=== PATIENT | female | born 1990 ===

== ENCOUNTER 2019-06-02 07:15 | Inpatient (IN) | payer SELFPAY ==
[2019-06-02] MEDS ORDERED: Sodium Chloride 0.9% 10 ML SDV IV PRN (07:24)
[2019-06-02] MEDS ORDERED: Sodium Chloride 0.9% 10 ML Syringe FLUSH PRN (07:24)
[2019-06-02] MEDS ORDERED: Carboprost Tromethamine 250 MCG/1 ML Amp IM PRN (07:24)
[2019-06-02] MEDS ORDERED: Sodium Chloride 0.9% 2.5 ML Syringe FLUSH PRN (07:24)
[2019-06-02] MEDS ORDERED: Misoprostol 200 MCG Tab PO PRN (07:24)
[2019-06-02] MEDS ORDERED: Nalbuphine 10 MG/1 ML Vial IVPUSH PRN (07:24)
[2019-06-02] MEDS ORDERED: Tranexamic Acid 1,000 MG in Sodium Chloride 0.9% 100 ML IV PRN (07:24)
[2019-06-02] MEDS ORDERED: Water For Irrigation,Sterile 1,000 ML Container IRR PRN (07:24)
[2019-06-02] MEDS ORDERED: Terbutaline 1 MG/ML SDV SUBCUT PRN (07:24)
[2019-06-02] MEDS ORDERED: Lidocaine 1% 50 ML MDV INJECT PRN (07:24)
[2019-06-02] MEDS ORDERED: Methylergonovine 0.2 MG/1 ML Amp IM PRN (07:24)
[2019-06-02] MEDS ORDERED: Oxytocin/0.9 % Sodium Chloride 30 UNIT/500 ML BAG IV SCH ×2 (07:30)
[2019-06-02] MEDS ORDERED: Misoprostol 25 MCG (1/4 of 100 MCG) Tab VAG PRN (08:00)
[2019-06-02] MEDS: Lactated Ringers 1,000 ML IV SCH ×3 (08:00→15:38)
[2019-06-02] MEDS ORDERED: Misoprostol 25 MCG (1/4 of 100 MCG) Tab PO PRN (08:00)
--- NOTE | 2019-06-02 09:24 | PCM.LDHP ---
L&D History of Present Illness - General Date of Service: 06/02/19 Admit Problem/Dx: Patient Status Order with Admit Dx/Problem 06/02/19 07:24 Patient Status [ADT] Routine Admission Diagnosis/Problem Admission Diagnosis/Problem - planned 06/02/19 09:22 29 yo presenting for IOL at 39 weeks (EDC: 06/09/19), GBS negative, Rubella Immune, O+ Source of Information: Patient History Limitations: Reports: No Limitations - Related Data Allergies/Adverse Reactions: Allergies Allergy/AdvReac Type Severity Reaction Status Date / Time Penicillins Allergy Hives Verified 06/02/19 08:02 Home Medications: Home Meds Pnv No.95/Ferrous Fum/Folic AC [ Vitamin Tablet] 1 tab PO DAILY [History] Past Medical History - Past Health History Medical/Surgical History: Denies 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: Musculoskeletal History: Reports: Muscular Dystrophy, Other (See Below) 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 - Infectious Disease History Infectious Disease History: Reports: Chicken Pox - Past Surgical History HEENT Surgical History: Reports: Oral Surgery, Other (See Below) Other HEENT Surgeries/Procedures: [place] teeth removed Social & Family History - Family History OBGYN: Reports: Musculoskeletal: Reports: Muscular Dystrophy - Tobacco Use Smoking Status *Q: Never Smoker Second Hand Smoke Exposure: No - Caffeine Use Caffeine Use: Reports: Coffee, Soda - Recreational Drug Use Recreational Drug Use: No Drug Use in Last 12 Months: No H&P Review of Systems - Review of Systems: Review Of Systems: See Below General: Reports: No Symptoms HEENT: Reports: No Symptoms Pulmonary: Reports: No Symptoms Cardiovascular: Reports: No Symptoms Gastrointestinal: Reports: No Symptoms Genitourinary: Reports: No Symptoms Musculoskeletal: Reports: No Symptoms Skin: Reports: No Symptoms Psychiatric: Reports: No Symptoms Neurological: Reports: No Symptoms Hematologic/Lymphatic: Reports: No Symptoms Immunologic: Reports: No Symptoms L&D Exam - Exam Exam: See Below - Vital Signs Weight: 172 lb - OB Specific Contraction Intensity: Mild Movement: Active Heart Tones: Present Heart Rate (FHR) Variability: Moderate (6-25 bmp) - Robins Score Robins Score Cervix Position: Posterior Robins Score Consistency: Soft Robins Score Dilation: Closed Robins Score Infant's Station: -3 - Exam General: Alert, Oriented, Cooperative Lungs: Normal Respiratory Effort GI/Abdominal Exam: Soft, Non-Tender Rectal Exam: Deferred Genitourinary: Deferred Back Exam: Normal Inspection, Full Range of Motion Extremities: Normal Inspection, Normal Range of Motion, Non-Tender Skin: Warm, Dry, Intact Neurological: Normal Gait, Normal Speech, Normal Tone, Sensation Intact Psychiatric: Alert, Normal Affect, Normal Mood - Patient Data Lab Results Last 24 hrs: Laboratory Results - last 24 hr 06/02/19 06/02/19 Range/Units 07:51 07:51 WBC 10.49 (4.0-11.0) K/uL RBC 3.64 L (4.30-5.90) M/uL Hgb 10.7 L (12.0-16.0) g/dL Hct 32.5 L (36.0-46.0) % MCV 89.3 (80.0-98.0) fL MCH 29.4 (27.0-32.0) pg MCHC 32.9 (31.0-37.0) g/dL RDW Std Deviation 48.1 (28.0-62.0) fl RDW Coeff of Luz 15 (11.0-15.0) % Plt Count 217 (150-400) K/uL MPV 11.40 (7.40-12.00) fL Nucleated RBC % 0.0 /100WBC Nucleated RBCs # 0 K/uL Blood Type O POSITIVE Antibody Screen NEGATIVE Result Diagrams: 06/02/19 07:51 - Problem List (1) Supervision of normal IUP (intrauterine ) in multigravida SNOMED Code(s): 023828002, 305453016, 128141684 ICD Code: Z34.80 - ENCOUNTER FOR SUPRVSN OF NORMAL , UNSP TRIMESTER Status: Acute Priority: High Current Visit: Yes Qualifiers: Trimester: third trimester Qualified Code(s): Z34.83 - Encounter for supervision of other normal , third trimester Problem List Initiated/Reviewed/Updated: Yes Orders Last 24hrs: Active Orders 24 hr Category Date Time Status Patient Status [ADT] Routine ADT 06/02/19 07:24 Active Bedrest Bathroom Privileges [RC] ASDIRECTED Care 06/02/19 07:24 Active Communication Order [RC] ASDIRECTED Care 06/02/19 07:24 Active Communication Order [RC] ASDIRECTED Care 06/02/19 07:24 Active Communication Order [RC] ASDIRECTED Care 06/02/19 07:24 Active Heart Tones [RC] CONTINUOUS Care 06/02/19 07:24 Active Non Stress Test [RC] PER UNIT ROUTINE Care 06/02/19 07:24 Active May Shower [RC] ASDIRECTED Care 06/02/19 07:24 Active Notify Provider [RC] PRN Care 06/02/19 07:24 Active Notify Provider [RC] PRN Care 06/02/19 07:24 Active Notify Provider [RC] PRN Care 06/02/19 07:24 Active Notify Provider [RC] STAT Care 06/02/19 07:24 Active Oxygen Therapy [RC] ASDIRECTED Care 06/02/19 07:24 Active Up ad Carmen [RC] ASDIRECTED Care 06/02/19 07:24 Active Vaccines to be Administered [RC] PER UNIT ROUTINE Care 06/03/19 12:00 Active Vaginal Exam [RC] PRN Care 06/02/19 07:24 Active Vaginal Exam [RC] PRN Care 06/02/19 07:24 Active Vital Signs [RC] PER UNIT ROUTINE Care 06/02/19 07:24 Active Vital Signs [RC] PER UNIT ROUTINE Care 06/02/19 07:24 Active RPR (SYPHILIS SERO) W/ RFLX [REF] Routine Lab 06/02/19 07:51 Received Carboprost Tromethamine [Hemabate DS] Med 06/02/19 07:24 Active 250 mcg IM ASDIRECTED PRN Diphth,Pertuss(Acell),Tet Vac [Adacel] Med 06/03/19 12:00 Once 0.5 ml IM .ONCE ONE Lactated Ringers [Ringers, Lactated] 1,000 ml Med 06/02/19 07:30 Active IV ASDIRECTED Lidocaine 1% [Xylocaine 1%] Med 06/02/19 07:24 Active 50 ml INJECT ONETIME PRN Methylergonovine [Methergine] Med 06/02/19 07:24 Active 0.2 mg IM ASDIRECTED PRN Nalbuphine [Nubain] Med 06/02/19 07:24 Active 10 mg IVPUSH Q1H PRN Oxytocin/0.9 % Sodium Chloride [Oxytocin 30 Unit/500 ML Med 06/02/19 07:30 Active -NS] 30 unit in 500 ml IV TITRATE Oxytocin/0.9 % Sodium Chloride [Oxytocin 30 Unit/500 ML Med 06/02/19 07:30 Active -NS] 30 unit in 500 ml IV TITRATE Sodium Chloride 0.9% [Normal Saline] Med 06/02/19 07:24 Active 10 ml IV ASDIRECTED PRN Sodium Chloride 0.9% [Saline Flush] Med 06/02/19 07:24 Active 10 ml FLUSH ASDIRECTED PRN Sodium Chloride 0.9% [Saline Flush] Med 06/02/19 07:24 Active 2.5 ml FLUSH ASDIRECTED PRN Terbutaline [Brethine] Med 06/02/19 07:24 Active 0.25 mg SUBCUT ASDIRECTED PRN Tranexamic Acid [Cyklokapron] 1,000 mg Med 06/02/19 07:24 Active Sodium Chloride 0.9% [Normal Saline] 100 ml IV ONETIME Water For Irrigation,Sterile [Sterile Water for Med 06/02/19 07:24 Active Irrigation] 1,000 ml IRR ASDIRECTED PRN miSOPROStoL [Cytotec] Med 06/02/19 07:24 Active 200 mcg PO ONETIME PRN miSOPROStoL [Cytotec] Med 06/02/19 08:00 Active 25 mcg PO ONETIME PRN miSOPROStoL [Cytotec] Med 06/02/19 08:00 Active 25 mcg VAG Q4H PRN Scalp Electrode [WOMSER] Per Unit Routine Oth 06/02/19 07:24 Ordered Medication Administration Instruction [OM.PC] PER UNIT Oth 06/02/19 07:30 Ordered ROUTINE Peripheral IV Insertion Adult [OM.PC] Routine Oth 06/02/19 07:24 Ordered Resuscitation Status Routine Resus Stat 06/02/19 07:24 Ordered Medication Orders Carboprost Tromethamine (Hemabate Ds) 250 mcg IM ASDIRECTED PRN PRN Reason: Post Hemorrhage Diphtheria/Tetanus/Acell Pertussis (Adacel) 0.5 ml IM .ONCE ONE Stop: 06/03/19 12:01 Lactated Ringer's (Ringers, Lactated) 1,000 mls @ 150 mls/hr IV ASDIRECTED SAPPHIRE Last Admin: 06/02/19 08:00 Dose: 150 mls/hr Oxytocin/Sodium Chloride (Oxytocin 30 Unit/500 Ml-Ns) 30 unit in 500 mls @ 500 mls/hr IV TITRATE SAPPHIRE Oxytocin/Sodium Chloride (Oxytocin 30 Unit/500 Ml-Ns) 30 unit in 500 mls @ 2 mls/hr IV TITRATE SAPPHIRE; Protocol Tranexamic Acid 1,000 mg/ (Sodium Chloride) 110 mls @ 660 mls/hr IV ONETIME PRN PRN Reason: Bleeding Lidocaine HCl (Xylocaine 1%) 50 ml INJECT ONETIME PRN PRN Reason: Laceration repair Methylergonovine Maleate (Methergine) 0.2 mg IM ASDIRECTED PRN PRN Reason: Post Hemorrhage Misoprostol (Cytotec) 200 mcg PO ONETIME PRN PRN Reason: Post Hemorrhage Misoprostol (Cytotec) 25 mcg VAG Q4H PRN PRN Reason: Cervical Ripening Last Admin: 06/02/19 08:24 Dose: 25 mcg Misoprostol (Cytotec) 25 mcg PO ONETIME PRN PRN Reason: Cervical Ripening Last Admin: 06/02/19 08:24 Dose: 25 mcg Nalbuphine HCl (Nubain) 10 mg IVPUSH Q1H PRN PRN Reason: Pain (severe 7-10) Sodium Chloride (Saline Flush) 10 ml FLUSH ASDIRECTED PRN PRN Reason: Keep Vein Open Sodium Chloride (Saline Flush) 2.5 ml FLUSH ASDIRECTED PRN PRN Reason: Keep Vein Open Sodium Chloride (Normal Saline) 10 ml IV ASDIRECTED PRN PRN Reason: IV Use Sterile Water (Sterile Water For Irrigation) 1,000 ml IRR ASDIRECTED PRN PRN Reason: delivery Terbutaline Sulfate (Brethine) 0.25 mg SUBCUT ASDIRECTED PRN PRN Reason: Tacysystole Assessment/Plan Comment:: Admit A: 29 yo presenting for IOL at 39 weeks (EDC: 06/09/19), GBS negative, Rubella Immune, O+ P: Admit, IOL, cytotec to pitocin, epidural PRN, anticipate , Dr. Tracy updated
[2019-06-02] MEDS ORDERED: fentaNYL 100 MCG/2 ML SDV ONE (13:25)
[2019-06-02] MEDS ORDERED: Ropivacaine HCl/PF 100 ML ONE (13:26)
[2019-06-02] MEDS ORDERED: Ropivacaine 0.2% PF 2 MG/ML 20 ML SDV ONE (13:26)
--- NOTE | 2019-06-02 14:15 | PCM.PREANE ---
Preanesthetic Assessment - Anesthesia/Transfusion/Family Hx Anesthesia History: No Prior Anesthesia Family History of Anesthesia Reaction: No Transfusion History: No Prior Transfusion(s) Intubation History: Unknown - Review of Systems General: No Symptoms Pulmonary: No Symptoms Cardiovascular: No Symptoms Gastrointestinal: No Symptoms Neurological: No Symptoms Other: Reports: None - Physical Assessment NPO Status Date: 06/02/19 NPO Status Time: 13:30 (Clear liquids) Height: 1.57 m Weight: 78.018 kg ASA Class: 2 Mental Status: Alert & Oriented x3 Airway Class: Mallampati = 1 Dentition: Reports: Normal Dentition (Braces) Thyro-Mental Finger Breadths: 3 Mouth Opening Finger Breadths: 3 ROM/Head Extension: Full Lungs: Clear to Auscultation Cardiovascular: Regular Rate - Lab Values: Laboratory Last Values WBC 10.49 K/uL (4.0-11.0) 06/02/19 07:51 RBC 3.64 M/uL (4.30-5.90) L 06/02/19 07:51 Hgb 10.7 g/dL (12.0-16.0) L 06/02/19 07:51 Hct 32.5 % (36.0-46.0) L 06/02/19 07:51 MCV 89.3 fL (80.0-98.0) 06/02/19 07:51 MCH 29.4 pg (27.0-32.0) 06/02/19 07:51 MCHC 32.9 g/dL (31.0-37.0) 06/02/19 07:51 RDW Std Deviation 48.1 fl (28.0-62.0) 06/02/19 07:51 RDW Coeff of Luz 15 % (11.0-15.0) 06/02/19 07:51 Plt Count 217 K/uL (150-400) 06/02/19 07:51 MPV 11.40 fL (7.40-12.00) 06/02/19 07:51 Nucleated RBC % 0.0 /100WBC 06/02/19 07:51 Nucleated RBCs # 0 K/uL 06/02/19 07:51 Blood Type O POSITIVE 06/02/19 07:51 Antibody Screen NEGATIVE 06/02/19 07:51 - Allergies Allergies/Adverse Reactions: Allergies Allergy/AdvReac Type Severity Reaction Status Date / Time Penicillins Allergy Hives Verified 06/02/19 08:02 - Blood Blood Available: No Product(s) Available: None - Anesthesia Plan Pre-Op Medication Ordered: None - Acknowledgements Anesthesia Type Planned: Epidural Pt an Appropriate Candidate for the Planned Anesthesia: Yes Alternatives and Risks of Anesthesia Discussed w Pt/Guardian: Yes Pt/Guardian Understands and Agrees with Anesthesia Plan: Yes Additional Comments: Term. 9/10 pain. Discussed GINA. Permit signed. Wishes to proceed. . 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 - Infectious Disease History Infectious Disease History: Reports: Chicken Pox - Past Surgical History HEENT Surgical History: Reports: Oral Surgery, Other (See Below) Other HEENT Surgeries/Procedures: [place] teeth removed - SUBSTANCE USE Smoking Status *Q: Never Smoker Second Hand Smoke Exposure: No Recreational Drug Use History: No - HOME MEDS Home Medications: Home Meds Pnv No.95/Ferrous Fum/Folic AC [ Vitamin Tablet] 1 tab PO DAILY [History] - CURRENT (IN HOUSE) MEDS Current Meds: Current Medications Carboprost Tromethamine (Hemabate Ds) 250 mcg IM ASDIRECTED PRN PRN Reason: Post Hemorrhage Diphtheria/Tetanus/Acell Pertussis (Adacel) 0.5 ml IM .ONCE ONE Stop: 06/03/19 12:01 Lactated Ringer's (Ringers, Lactated) 1,000 mls @ 150 mls/hr IV ASDIRECTED SAPPHIRE Last Admin: 06/02/19 13:31 Dose: 150 mls/hr Oxytocin/Sodium Chloride (Oxytocin 30 Unit/500 Ml-Ns) 30 unit in 500 mls @ 500 mls/hr IV TITRATE SAPPHIRE Oxytocin/Sodium Chloride (Oxytocin 30 Unit/500 Ml-Ns) 30 unit in 500 mls @ 2 mls/hr IV TITRATE SAPPHIRE; Protocol Last Titration: 06/02/19 13:33 Dose: 4 munits/min, 4 mls/hr Tranexamic Acid 1,000 mg/ (Sodium Chloride) 110 mls @ 660 mls/hr IV ONETIME PRN PRN Reason: Bleeding Lidocaine HCl (Xylocaine 1%) 50 ml INJECT ONETIME PRN PRN Reason: Laceration repair Methylergonovine Maleate (Methergine) 0.2 mg IM ASDIRECTED PRN PRN Reason: Post Hemorrhage Misoprostol (Cytotec) 200 mcg PO ONETIME PRN PRN Reason: Post Hemorrhage Misoprostol (Cytotec) 25 mcg VAG Q4H PRN PRN Reason: Cervical Ripening Last Admin: 06/02/19 08:24 Dose: 25 mcg Misoprostol (Cytotec) 25 mcg PO ONETIME PRN PRN Reason: Cervical Ripening Last Admin: 06/02/19 08:24 Dose: 25 mcg Nalbuphine HCl (Nubain) 10 mg IVPUSH Q1H PRN PRN Reason: Pain (severe 7-10) Sodium Chloride (Saline Flush) 10 ml FLUSH ASDIRECTED PRN PRN Reason: Keep Vein Open Sodium Chloride (Saline Flush) 2.5 ml FLUSH ASDIRECTED PRN PRN Reason: Keep Vein Open Sodium Chloride (Normal Saline) 10 ml IV ASDIRECTED PRN PRN Reason: IV Use Sterile Water (Sterile Water For Irrigation) 1,000 ml IRR ASDIRECTED PRN PRN Reason: delivery Terbutaline Sulfate (Brethine) 0.25 mg SUBCUT ASDIRECTED PRN PRN Reason: Tacysystole Discontinued Medications Fentanyl (Sublimaze) Confirm Administered Dose 100 mcg .ROUTE .STK-MED ONE Stop: 06/02/19 13:26 Ropivacaine (Naropin 0.2%) Confirm Administered Dose 100 mls @ as directed .ROUTE .STK-MED ONE Stop: 06/02/19 13:27 Ropivacaine (Naropin 0.2%) Confirm Administered Dose 20 ml .ROUTE .STK-MED ONE Stop: 06/02/19 13:27
--- NOTE | 2019-06-02 14:20 | PCM.PRNOTE ---
- Free Text/Narrative Note: Requested for GINA, 39 week. Discussed, ? answered, permit signed. Wishes to proceed. Procedure without issues. See anesthesia record. Pain 12/19 pre-GINA. 04/20 post bolus. Gtt started @14:22 8ml/hr base, 4ml/hr bolus, q15m. Doing well. VSS. Tolerated well. No issues at present.
[2019-06-02] MEDS ORDERED: Acetaminophen 500 MG Tab PO PRN (19:08)
[2019-06-02] MEDS ORDERED: Bisacodyl 10 MG Supp RECTAL PRN (19:08)
[2019-06-02] MEDS ORDERED: Witch Hazel Medicated Pads 40/Jar TOP PRN (19:08)
[2019-06-02] MEDS ORDERED: Ibuprofen 400 MG Tab PO PRN (19:08)
[2019-06-02] MEDS ORDERED: oxyCODONE 5 MG Tab PO PRN (19:08)
[2019-06-02] MEDS ORDERED: Docusate Sodium 100 MG Cap PO PRN (19:08)
[2019-06-02] MEDS ORDERED: Benzocaine/Menthol 20%-0.5% Spray 78 GM Cannister TOP PRN (19:08)
[2019-06-02] MEDS ORDERED: Lanolin 100% Cream 7 GM Tube TOP PRN (19:08)
--- NOTE | 2019-06-02 19:20 | PCM.DEL ---
L & D Note - General Info Date of Service: 06/02/19 Mother's Due Date: 06/09/19 - Delivery Note Labor: Induced by Oxytocin Cervical Ripening Method: Misoprostil Delivery Outcome: Livebirth Infant Delivery Method: Spontaneous Vaginal Delivery-Single Infant Delivery Mode: Spontaneous Presentation: Vertex Nuchal Cord: Present (x1, summersaulted through) Anesthesia Type: Epidural Amniotic Fluid Description: Clear Episiotomy Type: None Laceration: None Placenta: Intact, Spontaneous Cord: 3 Vessels Estimated Blood Loss: 150 Resuscitation Needed: No Score 1 min: 9 Score 5 min: 9 Second Stage Interventions: Reports: Second Nurse Assessed Progress of Descent, Second Nurse Reviewed Contraction Pattern, Second Nurse Reviewed Heart Tones, Pushing Effectively, Pushing, Pulls Own Legs Back Delivery Comments (Free Text/Narrative):: viable female, head delivered with good pushing, shoulders and body followed easily after, nuchal x1, summersaulted through, baby to mom's abdomen for skin to skin, APGARS: 9/9, weight pending, cord cut following cessation of pulsing, placenta delivered grossly intact, EBL 150 mL, 3 VC, perineum intact, mom and baby left in stable condition with nurse at bedside for assessment - General Info Date of Service: 06/02/19 Admission Dx/Problem (Free Text): Patient Status Order with Admit Dx/Problem 06/02/19 07:24 Patient Status [ADT] Routine Admission Diagnosis/Problem Admission Diagnosis/Problem - planned 06/02/19 09:22 29 yo presenting for IOL at 39 weeks (EDC: 06/09/19), GBS negative, Rubella Immune, O+ Functional Status: Reports: Pain Controlled - Review of Systems General: Reports: No Symptoms HEENT: Reports: No Symptoms Pulmonary: Reports: No Symptoms Cardiovascular: Reports: No Symptoms Gastrointestinal: Reports: No Symptoms Genitourinary: Reports: No Symptoms Musculoskeletal: Reports: No Symptoms Skin: Reports: No Symptoms Neurological: Reports: No Symptoms Psychiatric: Reports: No Symptoms - Patient Data Weight - Most Recent: 172 lb Lab Results Last 24 Hours: Laboratory Results - last 24 hr 06/02/19 06/02/19 Range/Units 07:51 07:51 WBC 10.49 (4.0-11.0) K/uL RBC 3.64 L (4.30-5.90) M/uL Hgb 10.7 L (12.0-16.0) g/dL Hct 32.5 L (36.0-46.0) % MCV 89.3 (80.0-98.0) fL MCH 29.4 (27.0-32.0) pg MCHC 32.9 (31.0-37.0) g/dL RDW Std Deviation 48.1 (28.0-62.0) fl RDW Coeff of Luz 15 (11.0-15.0) % Plt Count 217 (150-400) K/uL MPV 11.40 (7.40-12.00) fL Nucleated RBC % 0.0 /100WBC Nucleated RBCs # 0 K/uL Blood Type O POSITIVE Antibody Screen NEGATIVE Med Orders - Current: Current Medications Discontinued Medications Carboprost Tromethamine (Hemabate Ds) 250 mcg IM ASDIRECTED PRN PRN Reason: Post Hemorrhage Diphtheria/Tetanus/Acell Pertussis (Adacel) 0.5 ml IM .ONCE ONE Stop: 06/03/19 12:01 Fentanyl (Sublimaze) Confirm Administered Dose 100 mcg .ROUTE .STK-MED ONE Stop: 06/02/19 13:26 Lactated Ringer's (Ringers, Lactated) 1,000 mls @ 150 mls/hr IV ASDIRECTED SAPPHIRE Last Admin: 06/02/19 15:38 Dose: 150 mls/hr Oxytocin/Sodium Chloride (Oxytocin 30 Unit/500 Ml-Ns) 30 unit in 500 mls @ 500 mls/hr IV TITRATE SAPPHIRE Oxytocin/Sodium Chloride (Oxytocin 30 Unit/500 Ml-Ns) 30 unit in 500 mls @ 2 mls/hr IV TITRATE SAPPHIRE; Protocol Last Titration: 06/02/19 14:39 Dose: 0 munits/min, 0 mls/hr Tranexamic Acid 1,000 mg/ (Sodium Chloride) 110 mls @ 660 mls/hr IV ONETIME PRN PRN Reason: Bleeding Ropivacaine (Naropin 0.2%) Confirm Administered Dose 100 mls @ as directed .ROUTE .STK-MED ONE Stop: 06/02/19 13:27 Lidocaine HCl (Xylocaine 1%) 50 ml INJECT ONETIME PRN PRN Reason: Laceration repair Methylergonovine Maleate (Methergine) 0.2 mg IM ASDIRECTED PRN PRN Reason: Post Hemorrhage Misoprostol (Cytotec) 200 mcg PO ONETIME PRN PRN Reason: Post Hemorrhage Misoprostol (Cytotec) 25 mcg VAG Q4H PRN PRN Reason: Cervical Ripening Last Admin: 06/02/19 08:24 Dose: 25 mcg Misoprostol (Cytotec) 25 mcg PO ONETIME PRN PRN Reason: Cervical Ripening Last Admin: 06/02/19 08:24 Dose: 25 mcg Nalbuphine HCl (Nubain) 10 mg IVPUSH Q1H PRN PRN Reason: Pain (severe 7-10) Ropivacaine (Naropin 0.2%) Confirm Administered Dose 20 ml .ROUTE .K-MED ONE Stop: 06/02/19 13:27 Sodium Chloride (Saline Flush) 10 ml FLUSH ASDIRECTED PRN PRN Reason: Keep Vein Open Sodium Chloride (Saline Flush) 2.5 ml FLUSH ASDIRECTED PRN PRN Reason: Keep Vein Open Sodium Chloride (Normal Saline) 10 ml IV ASDIRECTED PRN PRN Reason: IV Use Sterile Water (Sterile Water For Irrigation) 1,000 ml IRR ASDIRECTED PRN PRN Reason: delivery Terbutaline Sulfate (Brethine) 0.25 mg SUBCUT ASDIRECTED PRN PRN Reason: Tacysystole - Exam General: Alert, Oriented, Cooperative, No Acute Distress Lungs: Normal Respiratory Effort GI/Abdominal Exam: Soft, Non-Tender (Female) Exam: Deferred Back Exam: Normal Inspection, Full Range of Motion Extremities: Normal Inspection, Normal Range of Motion, Non-Tender Skin: Warm, Dry, Intact Neurological: No New Focal Deficit Psy/Mental Status: Alert, Normal Affect, Normal Mood - Problem List & Annotations (1) Supervision of normal IUP (intrauterine ) in multigravida SNOMED Code(s): 975083439, 447483014, 149624907 Code(s): Z34.80 - ENCOUNTER FOR SUPRVSN OF NORMAL , UNSP TRIMESTER Status: Acute Priority: High Current Visit: Yes Qualifiers: Trimester: third trimester Qualified Code(s): Z34.83 - Encounter for supervision of other normal , third trimester (2) (normal spontaneous vaginal delivery) SNOMED Code(s): 51854397, 414699792 Code(s): O80 - ENCOUNTER FOR FULL-TERM UNCOMPLICATED DELIVERY Status: Acute Priority: High Current Visit: Yes - Problem List Review Problem List Initiated/Reviewed/Updated: Yes - My Orders Last 24 Hours: My Active Orders 06/02/19 07:24 Heart Tones [RC] CONTINUOUS Non Stress Test [RC] PER UNIT ROUTINE Oxygen Therapy [RC] ASDIRECTED Vaginal Exam [RC] PRN Vaginal Exam [RC] PRN Vital Signs [RC] PER UNIT ROUTINE Vital Signs [RC] PER UNIT ROUTINE 06/02/19 07:51 RPR (SYPHILIS SERO) W/ RFLX [REF] Routine 06/02/19 19:08 Acetaminophen [Tylenol Extra Strength] 1,000 mg PO Q4H PRN Acetaminophen [Tylenol Extra Strength] 500 mg PO Q4H PRN Benzocaine/Menthol [Dermoplast Pain Relief 20%-0.5% Raymond] 78 gm TOP ASDIRECTED PRN Docusate Sodium [Colace] 100 mg PO BID PRN Ibuprofen [Motrin] 400 mg PO Q4H PRN Ibuprofen [Motrin] 800 mg PO Q6H PRN Lanolin [Lansinoh HPA] See Dose Instructions TOP ASDIRECTED PRN bisacodyL [Dulcolax] 10 mg RECTAL ONETIME PRN oxyCODONE 5 mg PO Q2H PRN witch Florian [Tucks] 1 pad TOP ASDIRECTED PRN Resuscitation Status Routine 06/02/19 19:09 Patient Status [ADT] Routine May Shower [RC] ASDIRECTED Up ad Carmen [RC] ASDIRECTED Vital Signs [RC] PER UNIT ROUTINE Assess Lochia [WOMSER] Per Unit Routine Assess Uterine Involution [WOMSER] Per Unit Routine Peripheral IV Discontinue [OM.PC] Routine 06/03/19 05:11 HEMOGLOBIN/HEMATOCRIT,HH [HEME] Timed 06/03/19 12:00 Vaccines to be Administered [RC] PER UNIT ROUTINE - Plan Plan:: Admit A: 29 yo presenting for IOL at 39 weeks (EDC: 06/09/19), GBS negative, Rubella Immune, O+ P: Admit, IOL, cytotec to pitocin, epidural PRN, anticipate , Dr. Tracy updated Labor A: viable infant female, nuchal x1, summersaulted through, APGARS: 9/9, weight pending, placenta delivered grossly intact, EBL 150 mL, 3 VC, intact perineum, mom and baby left in stable condition with nurse at bedside for assessment P: Routine plan of care. Dr. Tracy updated.
[2019-06-02] MEDS: Acetaminophen 500 MG Tab PO PRN (22:43)
[2019-06-02] MEDS: Ibuprofen 800 MG Tab PO PRN (22:45)
[2019-06-03] MEDS: Ibuprofen 800 MG Tab PO PRN ×3 (04:17→17:18)
[2019-06-03] MEDS: Acetaminophen 500 MG Tab PO PRN (08:14)
--- NOTE | 2019-06-03 10:35 | PCM.DCSUM1 ---
Discharge Summary - Hospital Course Free Text/Narrative:: Discharge home with baby. Follow up in 6 weeks for exam. Diagnosis: Stroke: No Modified Placer Scale: No Symptoms at All Modified Rell Scale Score: 0 - Discharge Data Discharge Date: 06/03/19 Discharge Disposition: Home, Self-Care 01 Condition: Good - Referral to Home Health Primary Care Physician: PCP None - Discharge Diagnosis/Problem(s) (1) Supervision of normal IUP (intrauterine ) in multigravida SNOMED Code(s): 511792423, 753234597, 988853225 ICD Code: Z34.80 - ENCOUNTER FOR SUPRVSN OF NORMAL , UNSP TRIMESTER Status: Acute Priority: High Current Visit: Yes Qualifiers: Trimester: third trimester Qualified Code(s): Z34.83 - Encounter for supervision of other normal , third trimester (2) (normal spontaneous vaginal delivery) SNOMED Code(s): 01837794, 429488025 ICD Code: O80 - ENCOUNTER FOR FULL-TERM UNCOMPLICATED DELIVERY Status: Acute Priority: High Current Visit: Yes - Patient Instructions Diet: Regular Diet as Tolerated, Drink 8-10+ Glasses/Day Activity: As Tolerated, No Strenuous Activities, Rest and Relax Today Driving: May Drive Today Showering/Bathing: May Shower Notify Provider of: Fever, Increased Pain, Swelling and Redness, Drainage, Nausea and/or Vomiting - Discharge Plan *PRESCRIPTION DRUG MONITORING PROGRAM REVIEWED*: Not Applicable *COPY OF PRESCRIPTION DRUG MONITORING REPORT IN PATIENT JASBIR: Not Applicable Prescriptions/Med Rec: Ibuprofen [Motrin] 800 mg PO Q6H PRN #90 tablet PRN Reason: Pain Home Medications: Home Meds Pnv No.95/Ferrous Fum/Folic AC [ Vitamin Tablet] 1 tab PO DAILY [History] Ibuprofen [Motrin] 800 mg PO Q6H PRN #90 tablet 06/03/19 [Rx] Oxygen Therapy Mode: Room Air - Discharge Summary/Plan Comment DC Time >30 min.: Yes - General Info Date of Service: 06/03/19 Admission Dx/Problem (Free Text: Patient Status Order with Admit Dx/Problem 06/02/19 07:24 Patient Status [ADT] Routine Admission Diagnosis/Problem Admission Diagnosis/Problem - planned 06/02/19 09:22 29 yo presenting for IOL at 39 weeks (EDC: 02/29/20), GBS negative, Rubella Immune, O+ Functional Status: Reports: Pain Controlled, Tolerating Diet, Ambulating, Urinating - Review of Systems General: Reports: No Symptoms HEENT: Reports: No Symptoms Pulmonary: Reports: No Symptoms Cardiovascular: Reports: No Symptoms Gastrointestinal: Reports: No Symptoms Genitourinary: Reports: No Symptoms Musculoskeletal: Reports: No Symptoms Skin: Reports: No Symptoms Neurological: Reports: No Symptoms Psychiatric: Reports: No Symptoms - Patient Data Vitals - Most Recent: Last Vital Signs Temp 97.4 F 06/03/19 08:02 Pulse 73 06/03/19 08:02 Resp 16 06/03/19 08:02 BP 114/67 06/03/19 08:02 Pulse Ox 97 06/03/19 08:02 Weight - Most Recent: 172 lb Lab Results - Last 24 hrs: Laboratory Results - last 24 hr 06/03/19 Range/Units 06:00 Hgb 10.3 L (12.0-16.0) g/dL Hct 31.7 L (36.0-46.0) % Med Orders - Current: Current Medications Acetaminophen (Tylenol Extra Strength) 500 mg PO Q4H PRN PRN Reason: Pain Acetaminophen (Tylenol Extra Strength) 1,000 mg PO Q4H PRN PRN Reason: Pain Last Admin: 06/03/19 08:14 Dose: 1,000 mg Benzocaine/Menthol (Dermoplast Pain Relief 20%-0.5% [place]) 78 gm TOP ASDIRECTED PRN PRN Reason: Perineal Comfort Measure Last Admin: 06/02/19 22:48 Dose: 1 applic Bisacodyl (Dulcolax) 10 mg RECTAL ONETIME PRN PRN Reason: Constipation Docusate Sodium (Colace) 100 mg PO BID PRN PRN Reason: Constipation Emollient Ointment (Lansinoh Hpa) 0 gm TOP ASDIRECTED PRN PRN Reason: Sore Nipples Ibuprofen (Motrin) 400 mg PO Q4H PRN PRN Reason: Pain Ibuprofen (Motrin) 800 mg PO Q6H PRN PRN Reason: Pain Last Admin: 06/03/19 04:17 Dose: 800 mg Oxycodone HCl (Oxycodone) 5 mg PO Q2H PRN PRN Reason: Pain Witch Cherie (Tucks) 1 pad TOP ASDIRECTED PRN PRN Reason: comfort care Last Admin: 06/02/19 22:42 Dose: 1 applic Discontinued Medications Carboprost Tromethamine (Hemabate Ds) 250 mcg IM ASDIRECTED PRN PRN Reason: Post Hemorrhage Diphtheria/Tetanus/Acell Pertussis (Adacel) 0.5 ml IM .ONCE ONE Stop: 06/03/19 12:01 Fentanyl (Sublimaze) Confirm Administered Dose 100 mcg .ROUTE .STK-MED ONE Stop: 06/02/19 13:26 Lactated Ringer's (Ringers, Lactated) 1,000 mls @ 150 mls/hr IV ASDIRECTED SAPPHIRE Last Admin: 06/02/19 15:38 Dose: 150 mls/hr Oxytocin/Sodium Chloride (Oxytocin 30 Unit/500 Ml-Ns) 30 unit in 500 mls @ 500 mls/hr IV TITRATE SAPPHIRE Oxytocin/Sodium Chloride (Oxytocin 30 Unit/500 Ml-Ns) 30 unit in 500 mls @ 2 mls/hr IV TITRATE SAPPHIRE; Protocol Last Titration: 06/02/19 18:42 Dose: 500 munits/min, 500 mls/hr Tranexamic Acid 1,000 mg/ (Sodium Chloride) 110 mls @ 660 mls/hr IV ONETIME PRN PRN Reason: Bleeding Ropivacaine (Naropin 0.2%) Confirm Administered Dose 100 mls @ as directed .ROUTE .[employer]-MED ONE Stop: 06/02/19 13:27 Lidocaine HCl (Xylocaine 1%) 50 ml INJECT ONETIME PRN PRN Reason: Laceration repair Methylergonovine Maleate (Methergine) 0.2 mg IM ASDIRECTED PRN PRN Reason: Post Hemorrhage Misoprostol (Cytotec) 200 mcg PO ONETIME PRN PRN Reason: Post Hemorrhage Misoprostol (Cytotec) 25 mcg VAG Q4H PRN PRN Reason: Cervical Ripening Last Admin: 06/02/19 08:24 Dose: 25 mcg Misoprostol (Cytotec) 25 mcg PO ONETIME PRN PRN Reason: Cervical Ripening Last Admin: 06/02/19 08:24 Dose: 25 mcg Nalbuphine HCl (Nubain) 10 mg IVPUSH Q1H PRN PRN Reason: Pain (severe 7-10) Ropivacaine (Naropin 0.2%) Confirm Administered Dose 20 ml .ROUTE .[employer] Stop: 06/02/19 13:27 Sodium Chloride (Saline Flush) 10 ml FLUSH ASDIRECTED PRN PRN Reason: Keep Vein Open Sodium Chloride (Saline Flush) 2.5 ml FLUSH ASDIRECTED PRN PRN Reason: Keep Vein Open Sodium Chloride (Normal Saline) 10 ml IV ASDIRECTED PRN PRN Reason: IV Use Sterile Water (Sterile Water For Irrigation) 1,000 ml IRR ASDIRECTED PRN PRN Reason: delivery Terbutaline Sulfate (Brethine) 0.25 mg SUBCUT ASDIRECTED PRN PRN Reason: Tacysystole - Exam General: Reports: Alert, Oriented, Cooperative, No Acute Distress Lungs: Reports: Normal Respiratory Effort GI/Abdominal Exam: Soft, Non-Tender (Female) Exam: Deferred Rectal (Female) Exam: Deferred Back Exam: Reports: Normal Inspection, Full Range of Motion Extremities: Normal Inspection, Normal Range of Motion, Non-Tender, Normal Capillary Refill Skin: Reports: Warm, Dry, Intact Neurological: Reports: No New Focal Deficit, Normal Gait, Normal Speech, Normal Tone, Strength Equal Bilateral, Reflexes Equal Bilateral Psy/Mental Status: Reports: Alert, Normal Affect, Normal Mood
[2019-06-03] MEDS ORDERED: Diphtheria,Pertussis(Acell),Tetanus Vaccine 0.5 ML Syringe IM ONE (12:00)
--- NOTE | 2019-06-03 12:01 | PCM48HPAN ---
Post Anesthesia Note - EVALUATION WITHIN 48HRS OF ANESTHETIC Vital Signs in Normal Range: Yes Patient Participated in Evaluation: Yes Respiratory Function Stable: Yes Airway Patent: Yes Cardiovascular Function Stable: Yes Hydration Status Stable: Yes Pain Control Satisfactory: Yes Nausea and Vomiting Control Satisfactory: Yes Mental Status Recovered: Yes Vital Signs: Last Vital Signs Temp 36.3 C 06/03/19 08:02 Pulse 73 06/03/19 08:02 Resp 16 06/03/19 08:02 BP 114/67 06/03/19 08:02 Pulse Ox 97 06/03/19 08:02 - COMMENTS/OBSERVATIONS Free Text/Narrative:: Doing well.
== END 2019-06-03 21:30 | disposition home or self-care (01) | DRG 807 ==
LOC: MW.OBCHECK 07:15 → MW.OB 07:20 → OBSVTOIN 19:09 → MW.OB 22:40
PROVIDERS: ADMIT Obstetrics & Gynecology; ATTEND Obstetrics & Gynecology
PROC: 10E0XZZ Delivery of Products of Conception, External Approach (ICD-10-PCS; principal; 2019-06-02)
PROC: 3E0P7VZ Introduction of Hormone into Female Reproductive, Via Natural or Artificial Opening (ICD-10-PCS; 2019-06-02)
PROC: 3E033VJ Introduction of Other Hormone into Peripheral Vein, Percutaneous Approach (ICD-10-PCS; 2019-06-02)
PROC: 3E0R3BZ Introduction of Anesthetic Agent into Spinal Canal, Percutaneous Approach (ICD-10-PCS; 2019-06-02)
PROC: 10907ZC Drainage of Amniotic Fluid, Therapeutic from Products of Conception, Via Natural or Artificial Opening (ICD-10-PCS; 2019-06-02)
DX: O69.81X0 Labor and delivery complicated by cord around neck, without compression, not applicable or unspecified (principal); Z37.0 Single live birth; Z3A.39 39 weeks gestation of pregnancy; Z88.0 Allergy status to penicillin; Z79.899 Other long term (current) drug therapy
CPT/HCPCS: 36415; 51702; 59025; 59409; 85014; 85018; 85027; 86592; 86850; 86900; 86901; A9270-GY; J2590; J2795; J3010; J7120